=== PATIENT | female | born 1955 | race Caucasian/White ===

== ENCOUNTER 2020-07-20 08:56 | Emergency (ER) | payer MEDICARE ==
[~2020-07-20] VITALS: Ht 165.1 cm; Wt 73.9 kg
[2020-07-20 09:00] VITALS: BP_SYST 148
[2020-07-20] MEDS ORDERED: LIDOCAINE 1%, 20 ML MDV 20 ML ONE (10:00)
[2020-07-20] MEDS ORDERED: LIDOCAINE 1% 10 MG/ML, 20 ML MDV INJ ONE (10:00)
[2020-07-20] MEDS ORDERED: BACITRACIN 1 GM OINT TP ONE (10:13)
[2020-07-20 10:22] VITALS: BP_SYST 138
== END 2020-07-20 10:22 | disposition home or self-care (01) ==
LOC: SED 08:56
DX: S61.511A Laceration without foreign body of right wrist, initial encounter (principal); Z88.0 Allergy status to penicillin; W25.XXXA Contact with sharp glass, initial encounter; Y93.89 Activity, other specified; Y92.89 Other specified places as the place of occurrence of the external cause; Y99.8 Other external cause status
CPT/HCPCS: 12001; 73100; 99283; J2001